=== PATIENT | female | born 1960 | race Caucasian/White ===

== ENCOUNTER 2023-10-29 05:39 | Emergency (ER) | payer BC, SELFPAY ==
[2023-10-29 05:49] VITALS: BP 158/89; PULSE 91; RESP 18; TEMP 36.9; O2SAT 98; BMI 29.8
[2023-10-29 06:25] VITALS: TEMP 36.9
[2023-10-29] MEDS: KETOROLAC 30 MG/ML inj IM (06:25)
--- NOTE | 2023-10-29 06:38 | ED.GENADULT ---
HPI - General Adult General Date Seen: 10/29/23 Chief complaint: Ear/Nose/Throat Problem Stated complaint: sinus infection Time Seen by Provider: 10/29/23 05:42 Source: patient Mode of arrival: ambulatory Limitations: no limitations History of Present Illness HPI narrative: Patient is a 63-year-old female who has had a runny nose for the past week to 10 days. Yesterday she developed pain in her left cheek. She has also been battling a migraine on and off for the past two weeks as well. Excedrin migraine usually works but has not worked for her this time. Related Data Home Medications Medication Instructions Recorded Confirmed No Known Home Medications 10/29/23 10/29/23 Previous Rx's Medication Instructions Recorded amoxicillin 875 mg tablet 875 mg PO BID #20 tabs 10/29/23 Allergies Allergy/AdvReac Type Severity Reaction Status Date / Time No Known Drug Allergies Allergy Verified 10/29/23 05:50 Review of Systems Narrative: Review of systems is outlined above otherwise noted to be negative. PFSH PFSH Social History Smoking Status: Never smoker Do you use any of these nicotine containing products: None How often do you have a drink containing alcohol: never AUDIT-C Alcohol total score: 0 Non-prescribed substance use: denies use Exam Narrative: Exam Narrative: Vitals noted. HEENT: Conjunctiva clear. Tympanic membranes are pearly white bilaterally. Posterior pharynx is clear without erythema or exudate. She has tenderness over the left maxillary sinus. Neck is supple without adenopathy. Lungs: Clear to auscultation in all hilario. No wheezes, rales, rhonchi. Heart: Regular rate and rhythm without murmur. Extremities: No cyanosis or edema. Good distal pulses. Skin: No abnormalities noted of the exposed skin. Neurologic: Awake, alert, fully oriented. Neurologic exam is nonfocal. Const: Vital Signs, click to edit/add: Vital Signs - 24 hr 10/29/23 05:49 10/29/23 06:25 Temperature 98.4 F 98.4 F Pulse Rate [Pulse Oximeter] 91 Respiratory Rate 18 Blood Pressure [Ri ght Upper Arm] 158/89 H Pulse Oximetry 98 Oxygen Delivery Me thod Room Air Course Course ED Course: Patient was seen and examined. Her migraine was treated with Toradol 30 mg IM with some improvement. Vital Signs Vital signs: Initial Vital Signs Temperature 98.4 F 10/29/23 05:49 Temperature Source Temporal Artery Scan 10/29/23 05:49 Pulse Rate 91 10/29/23 05:49 Respiratory Rate 18 10/29/23 05:49 Blood Pressure 158/89 H 10/29/23 05:49 Blood Pressure Mean 112 H 10/29/23 05:49 Blood Pressure Position Sitting 10/29/23 05:49 Pulse Oximetry 98 10/29/23 05:49 Oxygen Delivery Method Room Air 10/29/23 05:49 Vital Signs Temperature 98.4 F 10/29/23 05:49 Pulse Rate 91 10/29/23 05:49 Respiratory Rate 18 10/29/23 05:49 Blood Pressure 158/89 H 10/29/23 05:49 Pulse Oximetry 98 10/29/23 05:49 Oxygen Delivery Method Room Air 10/29/23 05:49 Temperature 98.4 F 10/29/23 06:25 Pulse Rate 91 10/29/23 05:49 Respiratory Rate 18 10/29/23 05:49 Blood Pressure 158/89 H 10/29/23 05:49 Pulse Oximetry 98 10/29/23 05:49 Oxygen Delivery Method Room Air 10/29/23 05:49 Medications Administered Medications: Discontinued Medications Generic Name Dose Route Start Last Admin Trade Name Ayleen PRN Reason Stop Dose Admin Ketorolac Tromethamine 30 mg 10/29/23 06:14 10/29/23 06:25 Ketorolac 30 Mg/Ml Inj IM 10/29/23 06:15 30 mg ONCE ONE Administration Discharge Plan Discharge Clinical Impression: Acute sinusitis, Migraine Patient Disposition: Home, Self-Care Condition: Stable Additional Instructions: Amoxicillin 875 mg b.i.d. times 10 days. Use a decongestant such as Mucinex or Sudafed. Push fluids, rest, humidity. Follow-up in the clinic if symptoms are worsening or not improving. Prescriptions: New amoxicillin 875 mg tablet 875 mg PO BID Qty: 20 0RF No Action No Known Home Medications Follow Up/Referrals: Bobby Mercado MD [Primary Care Provider] - Stand Alone [facility] Inst[facility]
== END 2023-10-29 06:30 | disposition home or self-care (01) ==
LOC: ED 06:21
PROVIDERS: Emergency Provider Family Medicine; PCP Family Medicine
DX: G43.909 Migraine, unspecified, not intractable, without status migrainosus (principal); J01.90 Acute sinusitis, unspecified
CPT/HCPCS: 96372; 99281; 99283; 99284; J1885

== ENCOUNTER 2025-07-23 10:13 | Outpatient (CLI) | payer BC, SELFPAY | END 2025-07-23 10:14 | disposition home or self-care (01) | PROVIDERS: PCP Family Medicine; Visit Provider Physician Assistant | DX: R35.0 Frequency of micturition (principal) | CPT/HCPCS: 87086 ==